=== PATIENT | male | born 1955 | race Caucasian/White ===

== ENCOUNTER 2024-12-08 16:25 | Outpatient (CLI) | payer MEDICARE, OTHER, SELFPAY ==
--- NOTE | 2024-12-08 16:49 | DI.RAD_ITS ---
Exam(s) XR CHEST 2V PA LATERAL EXAM: XR CHEST 2V PA LATERAL CLINICAL HISTORY: R05.1 Acute cough. TECHNIQUE: 2D digital imaging was performed. COMPARISON: No exams were available for comparison FINDINGS: 2 views: Heart size is normal. The mediastinum is not widened. Bilateral hyperinflation but no infiltrates nor pleural effusions. No pulmonary edema. IMPRESSION: No acute pulmonary findings.Hyperinflation noted. DATA REPOSITORY: RADIATION DOSE DELIVERED:
--- NOTE | 2024-12-11 11:53 | DI.VRAD_ITS ---
PROCEDURE INFORMATION: Exam: XR Chest Exam date and time: 12/08/2024 4:32 PM Age: 68 years old Clinical indication: Other: Acute cough TECHNIQUE: Imaging protocol: Radiologic exam of the chest. Views: 2 views. COMPARISON: No relevant prior studies available. FINDINGS: Lungs: Moderate to severe bilateral hyperinflation suggesting air trapping. This could be related to an upper respiratory infection or underlying emphysema/COPD. No focal airspace consolidation or infiltrates. No pulmonary edema changes. Pleural spaces: No pleural effusion. No pneumothorax. Heart/Mediastinum: Normal heart size. No mediastinal widening. Bones/joints: Degenerative thoracic spine features. IMPRESSION: 1. No acute infiltrates or edema. 2. Hyperinflation bilaterally. Consider upper respiratory infection with air trapping versus emphysema/COPD. 3. No acute pleural disease. Dictated and Authenticated by: Chace Draper MD. Orderin ELIZABETH JOAQUIN MD
== END 2024-12-08 16:45 ==
PROVIDERS: Visit Provider Nurse Practitioner Family
DX: R05.1 Acute cough (principal); R91.8 Other nonspecific abnormal finding of lung field
CPT/HCPCS: 71046

== ENCOUNTER 2024-12-08 22:20 | Outpatient (REF) | payer MEDICARE, OTHER, SELFPAY ==
[2024-12-08 22:51] LABS: Abs Immature Grans 0.01 10^3/uL (0.0-0.06); Absolute Basophil Count 0.03 10^3/uL (0.0-0.2); Absolute Eosinophil Count 0.15 10^3/uL (0.0-0.7); Absolute Lymphocyte Count 0.95 10^3/uL (1.2-3.4); Absolute Monocyte Count 0.43 10^3/uL (0.1-0.8); Absolute Neutrophil Count 5.33 10^3/uL (1.2-6.7); Basophils % 0.4 %; Eosinophils % 2.2 %; HCT 42.7 % (40.0-50.0); HGB 14.9 g/dL (13.5-17.5); Immature Grans % 0.1 %; Lymphocytes % 13.8 %; MCH 32.3 pg (27.0-33.0); MCHC 34.9 % (32.0-36.0); MCV 92 fL (80-95); MPV 11.6 fL (8.0-11.0); Monocytes % 6.2 %; Neutrophils % 77.3 %; Platelet Count 127 10^3/uL (130-400); RBC 4.62 10^6/uL (4.36-5.78); RDW 13.1 % (11.8-14.1); RDW-SD 44.2 fL
== END 2024-12-08 22:21 | disposition home or self-care (01) ==
LOC: LBN 22:20
PROVIDERS: Visit Provider Nurse Practitioner Family
DX: R50.9 Fever, unspecified (principal)
CPT/HCPCS: 80053; 87798; 85025; 86618